=== PATIENT | female | born 1950 | race Caucasian/White ===

== ENCOUNTER 2018-06-20 09:51 | Day surgery (SDC) | payer MEDICARE, MEDICAID ==
[2018-06-19 15:26] VITALS: BMI 51.6
[2018-06-20] MEDS ORDERED: Bupivacaine HCl 0.5%/Epinephrine 1:200,000/PF 30 ml Vial ONE (12:21)
[2018-06-20] MEDS ORDERED: Midazolam HCl 2 mg/2 ml Vial ONE (12:26)
[2018-06-20] MEDS ORDERED: Fentanyl 100 MCG/2 ML VIAL ONE ×3 (12:26→14:40)
[2018-06-20] MEDS ORDERED: Ondansetron HCl/PF 4 MG/2 ML Vial ONE (13:35)
[2018-06-20] MEDS ORDERED: Dexamethasone 20 MG/5 ML VIAL ONE (13:35)
[2018-06-20] MEDS ORDERED: Lidocaine 1% PF 5 ML VIAL ONE (13:35)
[2018-06-20] MEDS ORDERED: Succinylcholine Chloride 20 MG/ML 10 ml SYRINGE FS ONE (13:35)
--- NOTE | 2018-06-20 14:27 | OP ---
DATE OF SURGERY: 06/20/2018 PREOPERATIVE DIAGNOSES: 1. Right carpal tunnel syndrome. 2. Right middle and ring trigger fingers. POSTOPERATIVE DIAGNOSES: 1. Right carpal tunnel syndrome. 2. Right middle and ring trigger fingers. PROCEDURES: 1. Right carpal tunnel release. 2. Right middle and ring trigger releases. SURGEON: Leopoldo Lawton M.D. PROCEDURE IN DETAIL: The patient was brought to the operating room, and after administration of gene ral anesthetic and intubation, the right upper extremity was prepped and draped in the usual fashion. The tourniquet was inflated. A curved longitudinal incision was made following the volar thenar crease to the level of the wrist. Subcutaneous tissues were spread and the carpal ligament was released along the ulnar border of the median nerve. The volar forearm fascia was also released. A straight longitudinal incision, 1.5 cm in length, was made over the right ring finger MCP joint of the volar side and the A1 silverio was identified and released. The subcutaneous tissues were lifted u p proximally and distally to make sure the silverio was completely released. The tendons were then pul led up out of the wound to be sure there were no adhesions. The wound was irrigated and closed with 4-0 nylon. An identical procedure was then carried out on the middle finger. The other incisions were also infi ltrated with Marcaine with epinephrine. The carpal tunnel incision was closed with a running 4-0 nyl on. A well-padded bulky dressing was applied and the patient taken to recovery room in satisfactory condition. ESTIMATED BLOOD LOSS: 10 mL. COMPLICATIONS: None. The patient was monitored. When she was awake and alert, she was discharged home. She was given a p rescription for pain medication, wound care instructions, and followup appointments.
[2018-06-20] MEDS ORDERED: Ketorolac Tromethamine 30 MG/ML VIAL ONE (14:28)
== END 2018-06-20 16:05 | disposition home or self-care (01) ==
LOC: SDC 09:51
PROVIDERS: ATTEND Orthopaedic Surgery
PROC: 0LN70ZZ Release Right Hand Tendon, Open Approach (ICD-10-PCS; principal; 2018-06-20)
PROC: 0LN70ZZ Release Right Hand Tendon, Open Approach (ICD-10-PCS; 2018-06-20)
PROC: 01N50ZZ Release Median Nerve, Open Approach (ICD-10-PCS; 2018-06-20)
DX: G56.01 Carpal tunnel syndrome, right upper limb (principal); M65.331 Trigger finger, right middle finger; M65.341 Trigger finger, right ring finger; I10 Essential (primary) hypertension; J45.909 Unspecified asthma, uncomplicated; K21.9 Gastro-esophageal reflux disease without esophagitis; Z79.02 Long term (current) use of antithrombotics/antiplatelets; Z79.899 Other long term (current) drug therapy; Z88.0 Allergy status to penicillin; Z88.5 Allergy status to narcotic agent; Z88.8 Allergy status to other drugs, medicaments and biological substances
CPT/HCPCS: 93005; 93010; 96374; J0670; J1100; J1885; J2001; J2250; J2405; J3010

== ENCOUNTER 2021-01-04 15:55 | Inpatient (IN) | payer MEDICARE, MEDICAID ==
[2021-01-04] MEDS ORDERED: Acetaminophen 650 MG Suppository PR PRN (19:02)
[2021-01-04] MEDS ORDERED: Ondansetron PF 4 MG/2 ML Vial IVP PRN (19:02)
[2021-01-04] MEDS ORDERED: Ondansetron ODT 4 MG TAB PO PRN (19:02)
[2021-01-04] MEDS ORDERED: Pharmacy to Dose REMDESIVIR IVPB PRN (19:37)
[2021-01-04 19:40] LABS: #Lymphocytes 0.8 thou/uL (1.20-3.40); #Monocytes 0.3 thou/uL (0.11-0.59); #Neutrophils 5.3 thou/uL (1.40-6.50); %Eosinophils 0.1 % (0.0-10.0); %Lymphocytes 11.8 % (21.0-51.0); %Monocytes 5.1 % (0.0-10.0); %Neutrophils 82.9 % (42.0-75.0); Hemoglobin 11.8 g/dL (12.0-16.0); Mean Corpuscular HGB CONC 33.2 g/dL (32.0-36.0); Mean Corpuscular Volume 84.5 fL (78.0-98.0); Mean Platelet Volume 8.1 fL (7.4-10.4); Platelet Count 202 thou/uL (130-400); RBC Distribution Width 14.9 % (11.5-14.5); Red Blood Cell (RBC) Count 4.22 mill/uL (4.20-5.40); White Blood Cell (WBC) Count 6.4 thou/uL (4.8-10.8)
[2021-01-04 19:59] LABS: Anion Gap 16 mmol/L (10-20); BUN (Urea Nitrogen) 14 mg/dL (9.8-20.1); Calc. Creatinine Clearance 157 mL/min (70-130); Calcium 6.7 mg/dL (7.8-10.44); Carbon Dioxide 20 mmol/L (23-31); Chloride 106 mmol/L (98-107); Glucose 141 mg/dL (80-115); Potassium 3.1 mmol/L (3.5-5.1); Sodium 139 mmol/L (136-145)
[2021-01-04] MEDS ORDERED: Zinc Sulfate 220 MG CAP PO SCH (20:00)
[2021-01-04] MEDS ORDERED: Ascorbic Acid 500 mg Chewable Tablet PO SCH (20:00)
[2021-01-04] MEDS ORDERED: Cholecalciferol (Vitamin D3) 400 UNITS TAB PO SCH (20:00)
[2021-01-04] MEDS: Sodium Chloride 0.9% 1,000 ML IV SCH (20:23)
[2021-01-04] MEDS ORDERED: Electrolyte Replacement Protocol 1 EACH FS SCH (20:45)
[2021-01-04] MEDS ORDERED: Potassium Chloride 20 MEQ TAB PO SCH (20:45)
[2021-01-04] MEDS: Acetaminophen 325 MG TAB PO PRN (20:51)
[2021-01-04] MEDS ORDERED: REMDESIVIR (EUA) 200 MG in Sodium Chloride 0.9% 250 ML 210 ML IV SCH (21:00)
[2021-01-04] MEDS ORDERED: Dextrose 50% Abboject 50 ML SYRINGE SLOW IVP PRN (21:14)
[2021-01-04] MEDS ORDERED: Dextrose 5% in Water 1,000 ML IV PRN (21:14)
[2021-01-04] MEDS ORDERED: Albuterol 200 PUFF (6.7GM INHALER) INH PRN (22:07)
[2021-01-04] MEDS: Albuterol 200 PUFF (6.7GM INHALER) INH SCH (22:47)
[2021-01-04] MEDS: HYDROcodone/Acetaminophen 5/325 mg Tablet PO PRN (22:47)
[2021-01-05] MEDS: Albuterol 200 PUFF (6.7GM INHALER) INH SCH ×6 (02:39→23:46)
[2021-01-05] MEDS: Sodium Chloride 0.9% 1,000 ML IV SCH ×4 (02:52→22:36)
[2021-01-05] MEDS: HYDROcodone/Acetaminophen 5/325 mg Tablet PO PRN ×3 (06:29→21:40)
[2021-01-05 07:08] LABS: Mean Corpuscular HGB CONC 33.9 g/dL (32.0-36.0); Mean Corpuscular Hemoglobin 28.9 pg (27.0-31.0); Mean Corpuscular Volume 85.3 fL (78.0-98.0); Platelet Count 222 thou/uL (130-400); RBC Distribution Width 14.9 % (11.5-14.5); Red Blood Cell (RBC) Count 4.14 mill/uL (4.20-5.40)
[2021-01-05 07:25] LABS: Anion Gap 14 mmol/L (10-20); BUN (Urea Nitrogen) 12 mg/dL (9.8-20.1); Calc. Creatinine Clearance 169 mL/min (70-130); Calcium 6.6 mg/dL (7.8-10.44); Carbon Dioxide 23 mmol/L (23-31); Chloride 107 mmol/L (98-107); Glucose 161 mg/dL (80-115); Potassium 3.3 mmol/L (3.5-5.1); Sodium 141 mmol/L (136-145)
[2021-01-05 07:30] LABS: ALT (SGPT) 12 U/L (8-55); AST (SGOT) 40 U/L (5-34)
[2021-01-05] MEDS ORDERED: Potassium Chloride 20 MEQ TAB PO SCH (07:45)
[2021-01-05] MEDS: Cholecalciferol (Vitamin D3) 400 UNITS TAB PO SCH (08:37)
[2021-01-05] MEDS: Zinc Sulfate 220 MG CAP PO SCH (08:37)
[2021-01-05] MEDS ORDERED: Ascorbic Acid 500 mg Chewable Tablet PO SCH (09:00)
[2021-01-05] MEDS ORDERED: Dexamethasone 4 mg/ml Vial SLOW IVP SCH (09:00)
[2021-01-05] MEDS ORDERED: Magnesium Sulfate 4 GM in Sodium Chloride 0.9% 250 ML 250 ML IVPB SCH ×2 (10:00→12:45)
[2021-01-05 11:45] LABS: Band 23 % (5-11); Lymphocytes 10 % (21-51); MDiff Complete? YES; Monocytes 5 % (0-10); Neutrophil 61 % (42-75); RBC Morphology Normal; Reactive Lymphocytes 1 % (0-10)
[2021-01-05] MEDS ORDERED: Ketorolac Tromethamine 30 MG/ML VIAL IVP SCH (21:00)
[2021-01-05] MEDS: Atorvastatin Calcium 40 MG TAB PO SCH (21:39)
[2021-01-05] MEDS: metFORMIN XR 500 MG TAB PO SCH (21:39)
[2021-01-05] MEDS: REMDESIVIR (EUA) 100 MG in Sodium Chloride 0.9% 250 ML 230 ML IV SCH (22:36)
[2021-01-06] MEDS: Guaifenesin DM 100-10/5 ML UDCUP PO PRN (02:13)
[2021-01-06] MEDS: Albuterol 200 PUFF (6.7GM INHALER) INH SCH ×6 (02:59→22:51)
[2021-01-06] MEDS ORDERED: Magnesium Sulfate 2 GM in Sodium Chloride 0.9% 100 ML IVPB SCH (04:45)
[2021-01-06] MEDS ORDERED: Enoxaparin Sodium 40 MG/0.4 ML SYRINGE SC SCH (05:00)
[2021-01-06] MEDS: Diltiazem 125 MG in Sodium Chloride 0.9% 100 ML IVPB SCH ×2 (05:30→15:34)
[2021-01-06] MEDS: Sodium Chloride 0.9% 1,000 ML IV SCH ×3 (05:55→22:51)
[2021-01-06] MEDS: ALPRAZolam 0.25 MG TAB PO PRN ×3 (06:36→18:27)
[2021-01-06 08:09] LABS: #Lymphocytes 0.6 thou/uL (1.20-3.40); #Monocytes 0.5 thou/uL (0.11-0.59); #Neutrophils 7.4 thou/uL (1.40-6.50); %Basophils 0.1 % (0.0-1.0); %Eosinophils 0.3 % (0.0-10.0); %Lymphocytes 7.4 % (21.0-51.0); %Monocytes 5.4 % (0.0-10.0); %Neutrophils 86.9 % (42.0-75.0); Hemoglobin 12.3 g/dL (12.0-16.0); Mean Corpuscular HGB CONC 30.8 g/dL (32.0-36.0); Mean Corpuscular Hemoglobin 26.4 pg (27.0-31.0); Mean Corpuscular Volume 85.5 fL (78.0-98.0); Mean Platelet Volume 7.5 fL (7.4-10.4); Platelet Count 285 thou/uL (130-400); RBC Distribution Width 15.2 % (11.5-14.5); Red Blood Cell (RBC) Count 4.66 mill/uL (4.20-5.40); White Blood Cell (WBC) Count 8.6 thou/uL (4.8-10.8)
[2021-01-06 08:27] LABS: Magnesium 2.3 mg/dL (1.6-2.6)
[2021-01-06 08:30] LABS: ALT (SGPT) 11 U/L (8-55); AST (SGOT) 45 U/L (5-34); Anion Gap 15 mmol/L (10-20); BUN (Urea Nitrogen) 10 mg/dL (9.8-20.1); Calc. Creatinine Clearance 195 mL/min (70-130); Calcium 6.8 mg/dL (7.8-10.44); Carbon Dioxide 20 mmol/L (23-31); Chloride 108 mmol/L (98-107); Glucose 168 mg/dL (80-115); Potassium 3.2 mmol/L (3.5-5.1); Sodium 140 mmol/L (136-145)
[2021-01-06] MEDS: HumaLOG 300 UNITS/3 ML VIAL SC PRN (08:54)
[2021-01-06] MEDS: Ascorbic Acid 500 mg Chewable Tablet PO SCH ×2 (09:14→20:52)
[2021-01-06] MEDS: Clopidogrel Bisulfate 75 MG TAB PO SCH (09:15)
[2021-01-06] MEDS: Dexamethasone 4 mg/ml Vial SLOW IVP SCH ×2 (09:16→20:55)
[2021-01-06] MEDS: Zinc Sulfate 220 MG CAP PO SCH (09:18)
[2021-01-06] MEDS: Cholecalciferol (Vitamin D3) 400 UNITS TAB PO SCH (09:18)
[2021-01-06] MEDS ORDERED: Potassium Chloride 20 MEQ TAB PO SCH (09:45)
[2021-01-06] MEDS ORDERED: Potassium Chloride 20 MEQ in Premix Bag 1 BAG IVPB SCH (11:00)
[2021-01-06] MEDS: HYDROcodone/Acetaminophen 5/325 mg Tablet PO PRN ×2 (11:45→18:26)
[2021-01-06] MEDS: Atorvastatin Calcium 40 MG TAB PO SCH (20:53)
[2021-01-06] MEDS: metFORMIN XR 500 MG TAB PO SCH (20:53)
[2021-01-06] MEDS: Enoxaparin Sodium 40 MG/0.4 ML SYRINGE SC SCH (20:54)
[2021-01-06] MEDS: REMDESIVIR (EUA) 100 MG in Sodium Chloride 0.9% 250 ML 230 ML IV SCH (20:58)
[2021-01-07] MEDS: HYDROcodone/Acetaminophen 5/325 mg Tablet PO PRN ×3 (00:21→15:06)
[2021-01-07] MEDS: Guaifenesin DM 100-10/5 ML UDCUP PO PRN (00:34)
[2021-01-07 05:52] LABS: ALT (SGPT) 11 U/L (8-55); AST (SGOT) 41 U/L (5-34); Anion Gap 16 mmol/L (10-20); BUN (Urea Nitrogen) 12 mg/dL (9.8-20.1); Calc. Creatinine Clearance 191 mL/min (70-130); Calcium 6.5 mg/dL (7.8-10.44); Carbon Dioxide 20 mmol/L (23-31); Chloride 110 mmol/L (98-107); Glucose 200 mg/dL (80-115); Hemoglobin 12.6 g/dL (12.0-16.0); Mean Corpuscular HGB CONC 33.2 g/dL (32.0-36.0); Mean Corpuscular Hemoglobin 28.6 pg (27.0-31.0); Mean Corpuscular Volume 86.1 fL (78.0-98.0); Mean Platelet Volume 8.1 fL (7.4-10.4); Platelet Count 281 thou/uL (130-400); Potassium 3.5 mmol/L (3.5-5.1); RBC Distribution Width 15.4 % (11.5-14.5); Red Blood Cell (RBC) Count 4.41 mill/uL (4.20-5.40); Sodium 142 mmol/L (136-145); White Blood Cell (WBC) Count 8.2 thou/uL (4.8-10.8)
[2021-01-07 05:53] LABS: Band 1 % (5-11); Lymphocytes 6 % (21-51); MDiff Complete? YES; Monocytes 5 % (0-10); Neutrophil 88 % (42-75); Platelet Morphology Comment Appears Adequate
[2021-01-07] MEDS: Albuterol 200 PUFF (6.7GM INHALER) INH SCH ×4 (06:03→18:41)
[2021-01-07] MEDS: HumaLOG 300 UNITS/3 ML VIAL SC PRN ×3 (06:08→17:32)
[2021-01-07] MEDS ORDERED: Magnesium 2 GM/50 ML 2 GM in Premix Bag 1 BAG IVPB SCH (07:45)
[2021-01-07] MEDS ORDERED: Potassium Chloride 20 MEQ TAB PO SCH (07:45)
[2021-01-07] MEDS: Ascorbic Acid 500 mg Chewable Tablet PO SCH ×2 (07:48→21:19)
[2021-01-07] MEDS: Cholecalciferol (Vitamin D3) 400 UNITS TAB PO SCH (07:48)
[2021-01-07] MEDS: Zinc Sulfate 220 MG CAP PO SCH (07:48)
[2021-01-07] MEDS: Clopidogrel Bisulfate 75 MG TAB PO SCH (07:49)
[2021-01-07] MEDS: Enoxaparin Sodium 40 MG/0.4 ML SYRINGE SC SCH ×2 (07:50→21:20)
[2021-01-07] MEDS: Dexamethasone 4 mg/ml Vial SLOW IVP SCH (07:50)
[2021-01-07] MEDS: ALPRAZolam 0.25 MG TAB PO PRN (10:19)
[2021-01-07] MEDS ORDERED: methylPREDNISolone Sod Succ/PF 125 MG/2 ML VIAL IVPB SCH (11:15)
[2021-01-07] MEDS ORDERED: Ivermectin 3 MG TAB PO SCH (11:30)
[2021-01-07] MEDS ORDERED: Albuterol 200 PUFF (6.7GM INHALER) INH PRN (11:30)
[2021-01-07] MEDS: hydrALAZINE 20 MG/ML VIAL SLOW IVP PRN (13:10)
[2021-01-07] MEDS: Thiamine HCl 200 MG/2 ML VIAL SLOW IVP SCH (13:14)
[2021-01-07] MEDS: Propranolol HCl LA 80 MG CAP PO SCH ×5 (14:12→17:47)
[2021-01-07] MEDS: Diltiazem 125 MG in Sodium Chloride 0.9% 100 ML IVPB SCH (15:00)
[2021-01-07] MEDS: SODIUM CHLORIDE 0.9% IVPB SCH (15:00)
[2021-01-07] MEDS: METHYLPREDNISOLONE SOD SUCC IVPB SCH (15:00)
[2021-01-07] MEDS: Sodium Chloride 0.9% 1,000 ML IV SCH ×3 (15:41→22:54)
[2021-01-07] MEDS ORDERED: ALPRAZolam 0.25 MG TAB PO PRN (18:10)
[2021-01-07] MEDS: Atorvastatin Calcium 40 MG TAB PO SCH (21:19)
[2021-01-07] MEDS: metFORMIN XR 500 MG TAB PO SCH (21:19)
[2021-01-07] MEDS: Melatonin 3 MG TAB PO SCH (21:19)
[2021-01-07] MEDS: REMDESIVIR (EUA) 100 MG in Sodium Chloride 0.9% 250 ML 230 ML IV SCH (21:20)
[2021-01-08] MEDS: Diltiazem 125 MG in Sodium Chloride 0.9% 100 ML IVPB SCH ×2 (00:21→15:13)
[2021-01-08] MEDS: Albuterol 200 PUFF (6.7GM INHALER) INH SCH ×7 (01:37→22:04)
[2021-01-08] MEDS ORDERED: Lorazepam 2 MG/ML VIAL SLOW IVP SCH (04:15)
[2021-01-08] MEDS: HumaLOG 300 UNITS/3 ML VIAL SC PRN ×4 (05:22→22:00)
[2021-01-08 05:38] LABS: ALT (SGPT) 11 U/L (8-55); AST (SGOT) 36 U/L (5-34); Anion Gap 15 mmol/L (10-20); BUN (Urea Nitrogen) 11 mg/dL (9.8-20.1); Calc. Creatinine Clearance 191 mL/min (70-130); Calcium 6.2 mg/dL (7.8-10.44); Carbon Dioxide 23 mmol/L (23-31); Chloride 108 mmol/L (98-107); Glucose 217 mg/dL (80-115); Potassium 3.3 mmol/L (3.5-5.1); Sodium 143 mmol/L (136-145)
[2021-01-08 06:02] LABS: Band 4 % (5-11); Differential Comment Immature Cell(s); Hemoglobin 12.7 g/dL (12.0-16.0); Lymphocytes 5 % (21-51); MDiff Complete? YES; Mean Corpuscular HGB CONC 33.3 g/dL (32.0-36.0); Mean Corpuscular Hemoglobin 28.4 pg (27.0-31.0); Mean Corpuscular Volume 85.3 fL (78.0-98.0); Mean Platelet Volume 7.4 fL (7.4-10.4); Metamyelocyte 1 % (0-0); Monocytes 8 % (0-10); Neutrophil 80 % (42-75); Platelet Count 316 thou/uL (130-400); Platelet Morphology Comment Appears Adequate; RBC Distribution Width 15.2 % (11.5-14.5); RBC Morphology Normal; Red Blood Cell (RBC) Count 4.46 mill/uL (4.20-5.40); Reflex for Review?? YES
[2021-01-08] MEDS: Sodium Chloride 0.9% 1,000 ML IV SCH ×4 (07:07→19:47)
[2021-01-08] MEDS: Potassium Chloride 20 MEQ TAB PO SCH ×2 (07:09→07:28)
[2021-01-08] MEDS ORDERED: Propofol 1,000 MG/100 ML VIAL IV ONE (08:12)
[2021-01-08] MEDS ORDERED: Fentanyl CADD 100 ML ONE (08:13)
[2021-01-08] MEDS ORDERED: Vecuronium 10 MG VIAL ONE (09:12)
[2021-01-08] MEDS: Enoxaparin Sodium 40 MG/0.4 ML SYRINGE SC SCH ×2 (09:18→19:44)
[2021-01-08] MEDS: Cholecalciferol (Vitamin D3) 400 UNITS TAB PO SCH (09:18)
[2021-01-08] MEDS: Ascorbic Acid 500 mg Chewable Tablet PO SCH ×2 (09:18→19:44)
[2021-01-08] MEDS: Clopidogrel Bisulfate 75 MG TAB PO SCH (09:18)
[2021-01-08] MEDS: Zinc Sulfate 220 MG CAP PO SCH (09:18)
[2021-01-08] MEDS: Ivermectin 3 MG TAB PO SCH (09:19)
[2021-01-08] MEDS: Propranolol HCl LA 80 MG CAP PO SCH (09:19)
[2021-01-08] MEDS ORDERED: Electrolyte Replacement Protocol 1 EACH FS ONE (09:30)
[2021-01-08] MEDS ORDERED: Norepinephrine 8 MG/0.9% NS 250 ML IVPB SCH (09:30)
[2021-01-08] MEDS ORDERED: Ventilator Sedation Protocol 1 EACH FS SCH (09:30)
[2021-01-08] MEDS ORDERED: Propofol BOLUS 1,000 MG/100 ML VIAL IV PRN (10:00)
[2021-01-08] MEDS ORDERED: Fentanyl BOLUS 250 ML IVPB PRN (10:00)
[2021-01-08] MEDS ORDERED: Morphine 2 MG/ML VIAL SLOW IVP PRN (10:00)
[2021-01-08] MEDS ORDERED: DISCONTINUE PREVIOUS NARCOTIC PAIN MEDICATIONS AND BENZODIAZEPINES FS SCH (10:00)
[2021-01-08] MEDS ORDERED: Electrolyte Replacement Protocol FS PRN (10:00)
[2021-01-08 10:01] LABS: Actual Bicarbonate (HCO3a) 19.9 mEq/L (22-28); Base Excess (BEa) -5.5 mEq/L (-2.0 to +3.0); CO2 Tension 38.5 mmHg (35.0-45.0); Calcium, Ionized (arterial) 0.84 mmol/L (1.12-1.30); Carboxyhemoglobin (COHb) 0.2 gm% (0.0-3.0); Hemoglobin (Hb) 12.6 g/dL (12.0-16.0); Potassium - ABG Lab 2.92 mmol/L (3.70-5.30); pH, Arterial 7.33 (7.35-7.45)
[2021-01-08 10:10] LABS: O2 Tension (PaO2), arterial 48.8 mmHg (> 80.0)
[2021-01-08 10:11] LABS: ALV-art Gradient 616.075 mmHg (0-20); Puncture Site RRA
[2021-01-08] MEDS ORDERED: EPINEPHrine 1 MG/10 ML Abboject SYRINGE ONE (11:00)
[2021-01-08] MEDS ORDERED: Magnesium 2 GM/50 ML 2 GM in Premix Bag 1 BAG IVPB SCH (11:00)
[2021-01-08] MEDS: Vecuronium 10 MG VIAL IVP PRN ×2 (11:24→18:03)
[2021-01-08] MEDS: Lorazepam 2 MG/ML VIAL SLOW IVP PRN ×3 (11:25→18:03)
[2021-01-08] MEDS: METHYLPREDNISOLONE SOD SUCC IVPB SCH (11:25)
[2021-01-08] MEDS: SODIUM CHLORIDE 0.9% IVPB SCH (11:25)
[2021-01-08] MEDS: Thiamine HCl 200 MG/2 ML VIAL SLOW IVP SCH (11:28)
[2021-01-08] MEDS ORDERED: Potassium Chloride 40 MEQ in Premix Bag 1 BAG IVPB SCH (19:30)
[2021-01-08] MEDS: Atorvastatin Calcium 40 MG TAB PO SCH (19:44)
[2021-01-08] MEDS: Melatonin 3 MG TAB PO SCH (19:44)
[2021-01-08] MEDS: Propofol 1,000 MG/100 ML VIAL IV PRN (19:45)
[2021-01-08] MEDS: metFORMIN XR 500 MG TAB PO SCH (19:45)
[2021-01-08] MEDS: REMDESIVIR (EUA) 100 MG in Sodium Chloride 0.9% 250 ML 230 ML IV SCH (19:59)
[2021-01-09] MEDS ORDERED: Fentanyl CADD 100 ML ONE ×2 (01:55→22:49)
[2021-01-09] MEDS: Fentanyl CADD 100 ML IV SCH ×2 (02:01→22:52)
[2021-01-09] MEDS: Propofol 1,000 MG/100 ML VIAL IV PRN ×4 (02:01→20:11)
[2021-01-09] MEDS: Lorazepam 2 MG/ML VIAL SLOW IVP PRN ×2 (02:10→04:26)
[2021-01-09] MEDS: Vecuronium 10 MG VIAL IVP PRN ×5 (02:10→20:11)
[2021-01-09] MEDS: Albuterol 200 PUFF (6.7GM INHALER) INH SCH ×6 (02:19→21:53)
[2021-01-09] MEDS: HumaLOG 300 UNITS/3 ML VIAL SC PRN ×3 (03:50→20:52)
[2021-01-09 04:13] LABS: #Lymphocytes 0.7 thou/uL (1.20-3.40); #Monocytes 0.5 thou/uL (0.11-0.59); #Neutrophils 8.2 thou/uL (1.40-6.50); %Basophils 0.2 % (0.0-1.0); %Lymphocytes 7.5 % (21.0-51.0); %Monocytes 5.7 % (0.0-10.0); %Neutrophils 86.5 % (42.0-75.0); Hemoglobin 10.8 g/dL (12.0-16.0); Mean Corpuscular HGB CONC 34.8 g/dL (32.0-36.0); Mean Corpuscular Hemoglobin 30.3 pg (27.0-31.0); Mean Corpuscular Volume 86.9 fL (78.0-98.0); Platelet Count 294 thou/uL (130-400); RBC Distribution Width 16.1 % (11.5-14.5); Red Blood Cell (RBC) Count 3.55 mill/uL (4.20-5.40); White Blood Cell (WBC) Count 9.5 thou/uL (4.8-10.8)
[2021-01-09 04:26] LABS: ALT (SGPT) 12 U/L (8-55); AST (SGOT) 36 U/L (5-34); Anion Gap 14 mmol/L (10-20); BUN (Urea Nitrogen) 24 mg/dL (9.8-20.1); Calc. Creatinine Clearance 153 mL/min (70-130); Calcium 6.1 mg/dL (7.8-10.44); Carbon Dioxide 22 mmol/L (23-31); Chloride 111 mmol/L (98-107); Glucose 193 mg/dL (80-115); Potassium 3.8 mmol/L (3.5-5.1); Sodium 143 mmol/L (136-145)
[2021-01-09 06:47] LABS: Actual Bicarbonate (HCO3a) 23.3 mEq/L (22-28); Base Excess (BEa) 0.8 mEq/L (-2.0 to +3.0); CO2 Tension 30.7 mmHg (35.0-45.0); Calcium, Ionized (arterial) 0.87 mmol/L (1.12-1.30); Carboxyhemoglobin (COHb) 0.2 gm% (0.0-3.0); Potassium - ABG Lab 3.64 mmol/L (3.70-5.30)
[2021-01-09 06:56] LABS: Puncture Site RRA
[2021-01-09 06:57] LABS: ALV-art Gradient 226.475 mmHg (0-20)
[2021-01-09] MEDS: Cholecalciferol (Vitamin D3) 400 UNITS TAB PO SCH (09:29)
[2021-01-09] MEDS: Pantoprazole 40 MG VIAL IVP SCH (09:29)
[2021-01-09] MEDS: Zinc Sulfate 220 MG CAP PO SCH (09:29)
[2021-01-09] MEDS: Metoprolol Tartrate 25 MG TAB PER TUBE SCH ×2 (09:29→20:10)
[2021-01-09] MEDS: Clopidogrel Bisulfate 75 MG TAB PO SCH (09:30)
[2021-01-09] MEDS: Ascorbic Acid 500 mg Chewable Tablet PO SCH ×2 (09:30→20:10)
[2021-01-09] MEDS: Enoxaparin Sodium 40 MG/0.4 ML SYRINGE SC SCH ×2 (09:30→20:09)
[2021-01-09] MEDS: Ivermectin 3 MG TAB PO SCH (09:34)
[2021-01-09] MEDS: METHYLPREDNISOLONE SOD SUCC IVPB SCH (12:51)
[2021-01-09] MEDS: SODIUM CHLORIDE 0.9% IVPB SCH (12:51)
[2021-01-09] MEDS: Thiamine HCl 200 MG/2 ML VIAL SLOW IVP SCH (12:55)
[2021-01-09] MEDS: Sodium Chloride 0.9% 1,000 ML IV SCH ×2 (13:36→23:36)
[2021-01-09] MEDS: Melatonin 3 MG TAB PO SCH (20:09)
[2021-01-09] MEDS: Atorvastatin Calcium 40 MG TAB PO SCH (20:10)
[2021-01-10] MEDS: Albuterol 200 PUFF (6.7GM INHALER) INH SCH ×6 (02:11→21:39)
[2021-01-10] MEDS: Propofol 1,000 MG/100 ML VIAL IV PRN ×6 (03:11→23:14)
[2021-01-10] MEDS: Vecuronium 10 MG VIAL IVP PRN ×4 (03:11→16:14)
[2021-01-10] MEDS: Sodium Chloride 0.9% 1,000 ML IV SCH ×3 (03:30→10:03)
[2021-01-10 03:45] LABS: #Basophils 0.1 thou/uL (0.0-0.2); #Lymphocytes 0.5 thou/uL (1.20-3.40); #Monocytes 0.5 thou/uL (0.11-0.59); #Neutrophils 8.1 thou/uL (1.40-6.50); %Basophils 0.6 % (0.0-1.0); %Eosinophils 0.1 % (0.0-10.0); %Lymphocytes 5.4 % (21.0-51.0); %Monocytes 5.2 % (0.0-10.0); %Neutrophils 88.7 % (42.0-75.0); Hemoglobin 10.2 g/dL (12.0-16.0); Mean Corpuscular HGB CONC 33.5 g/dL (32.0-36.0); Mean Corpuscular Hemoglobin 29.2 pg (27.0-31.0); Mean Corpuscular Volume 87.3 fL (78.0-98.0); Mean Platelet Volume 7.9 fL (7.4-10.4); Platelet Count 277 thou/uL (130-400); RBC Distribution Width 15.7 % (11.5-14.5); White Blood Cell (WBC) Count 9.1 thou/uL (4.8-10.8)
[2021-01-10 04:01] LABS: Anion Gap 12 mmol/L (10-20); BUN (Urea Nitrogen) 30 mg/dL (9.8-20.1); CRP (Inflammatory) 5.33 mg/dL (= or < 0.5); Calc. Creatinine Clearance 145 mL/min (70-130); Carbon Dioxide 23 mmol/L (23-31); Chloride 114 mmol/L (98-107); Glucose 213 mg/dL (80-115); Potassium 4.1 mmol/L (3.5-5.1); Sodium 145 mmol/L (136-145)
[2021-01-10] MEDS: HumaLOG 300 UNITS/3 ML VIAL SC PRN ×4 (05:25→21:09)
[2021-01-10 07:26] LABS: Actual Bicarbonate (HCO3a) 22.7 mEq/L (22-28); Base Excess (BEa) -0.3 mEq/L (-2.0 to +3.0); Calcium, Ionized (arterial) 0.88 mmol/L (1.12-1.30); Carboxyhemoglobin (COHb) 0.5 gm% (0.0-3.0); Hemoglobin (Hb) 12.1 g/dL (12.0-16.0); O2 Tension (PaO2), arterial 80.1 mmHg (> 80.0); Potassium - ABG Lab 3.96 mmol/L (3.70-5.30); pH, Arterial 7.47 (7.35-7.45)
[2021-01-10] MEDS: Cholecalciferol (Vitamin D3) 400 UNITS TAB PO SCH (09:57)
[2021-01-10] MEDS: Clopidogrel Bisulfate 75 MG TAB PO SCH (09:57)
[2021-01-10] MEDS: Metoprolol Tartrate 25 MG TAB PER TUBE SCH ×2 (09:57→20:34)
[2021-01-10] MEDS: Ascorbic Acid 500 mg Chewable Tablet PO SCH ×2 (09:58→20:34)
[2021-01-10] MEDS: Pantoprazole 40 MG VIAL IVP SCH (09:58)
[2021-01-10] MEDS: Zinc Sulfate 220 MG CAP PO SCH (09:58)
[2021-01-10] MEDS: Enoxaparin Sodium 40 MG/0.4 ML SYRINGE SC SCH ×2 (09:58→20:35)
[2021-01-10] MEDS: Ivermectin 3 MG TAB PO SCH (10:00)
[2021-01-10] MEDS: NPH, Human Insulin Isophane 300 UNIT/3 ML VIAL SC SCH ×2 (10:01→20:35)
[2021-01-10] MEDS: Lorazepam 2 MG/ML VIAL SLOW IVP PRN ×3 (10:16→16:14)
[2021-01-10] MEDS ORDERED: Fentanyl CADD 100 ML ONE (11:15)
[2021-01-10] MEDS: Thiamine HCl 200 MG/2 ML VIAL SLOW IVP SCH ×2 (12:00→14:31)
[2021-01-10] MEDS: SODIUM CHLORIDE 0.9% IVPB SCH (14:07)
[2021-01-10] MEDS: METHYLPREDNISOLONE SOD SUCC IVPB SCH (14:07)
[2021-01-10] MEDS: Acetaminophen 325 MG TAB PO PRN (15:13)
[2021-01-10] MEDS ORDERED: Amiodarone 150 MG, Admixture Fee 1 EACH in Dextrose 5% in Water 100 ML IVPB SCH (19:45)
[2021-01-10] MEDS: Amiodarone 450 MG, Admixture Fee 1 EACH in Dextrose 5% in Water 250 ML IVPB SCH (19:48)
[2021-01-10] MEDS: Norepinephrine 8 MG/0.9% NS 250 ML IVPB SCH (20:31)
[2021-01-10] MEDS: Melatonin 3 MG TAB PO SCH (20:34)
[2021-01-10] MEDS: Atorvastatin Calcium 40 MG TAB PO SCH (20:34)
[2021-01-10] MEDS: Cefepime 1 GM in Sodium Chloride 0.9% 100 ML IVPB SCH (20:35)
[2021-01-11] MEDS: Vecuronium 10 MG VIAL IVP PRN ×3 (00:46→22:18)
[2021-01-11] MEDS: Lorazepam 2 MG/ML VIAL SLOW IVP PRN ×2 (00:46→22:18)
[2021-01-11] MEDS ORDERED: Fentanyl CADD 100 ML ONE ×2 (01:44→15:21)
[2021-01-11] MEDS: Albuterol 200 PUFF (6.7GM INHALER) INH SCH ×6 (02:08→23:16)
[2021-01-11 04:27] LABS: Band 52 % (5-11); Hemoglobin 11.4 g/dL (12.0-16.0); Lymphocytes 2 % (21-51); MDiff Complete? YES; Mean Corpuscular HGB CONC 32.5 g/dL (32.0-36.0); Mean Corpuscular Volume 89.2 fL (78.0-98.0); Mean Platelet Volume 8.2 fL (7.4-10.4); Monocytes 1 % (0-10); Neutrophil 45 % (42-75); Platelet Count 358 thou/uL (130-400); Platelet Morphology Comment Appears Adequate; RBC Distribution Width 16.8 % (11.5-14.5); Red Blood Cell (RBC) Count 3.92 mill/uL (4.20-5.40); White Blood Cell (WBC) Count 18.8 thou/uL (4.8-10.8)
[2021-01-11 04:43] LABS: Anion Gap 16 mmol/L (10-20); BUN (Urea Nitrogen) 38 mg/dL (9.8-20.1); CRP (Inflammatory) 20.94 mg/dL (= or < 0.5); Calc. Creatinine Clearance 20 mL/min (70-130); Calcium 6.2 mg/dL (7.8-10.44); Carbon Dioxide 23 mmol/L (23-31); Chloride 111 mmol/L (98-107); Glucose 200 mg/dL (80-115); Potassium 4.6 mmol/L (3.5-5.1); Sodium 145 mmol/L (136-145)
[2021-01-11] MEDS: Amiodarone 450 MG, Admixture Fee 1 EACH in Dextrose 5% in Water 250 ML IVPB SCH ×2 (04:45→21:32)
[2021-01-11] MEDS: HumaLOG 300 UNITS/3 ML VIAL SC PRN ×4 (04:52→22:09)
[2021-01-11] MEDS: Sodium Chloride 0.9% 1,000 ML IV SCH ×3 (04:52→17:34)
[2021-01-11 07:04] LABS: Actual Bicarbonate (HCO3a) 22.3 mEq/L (22-28); Base Excess (BEa) -6.3 mEq/L (-2.0 to +3.0); CO2 Tension 58.8 mmHg (35.0-45.0); Calcium, Ionized (arterial) 0.92 mmol/L (1.12-1.30); Carboxyhemoglobin (COHb) 0.6 gm% (0.0-3.0); Hemoglobin (Hb) 12.5 g/dL (12.0-16.0); Potassium - ABG Lab 4.74 mmol/L (3.70-5.30)
[2021-01-11 07:13] LABS: Puncture Site RRA
[2021-01-11] MEDS: Ascorbic Acid 500 mg Chewable Tablet PO SCH ×2 (08:13→21:31)
[2021-01-11] MEDS: Cholecalciferol (Vitamin D3) 400 UNITS TAB PO SCH (08:14)
[2021-01-11] MEDS: Metoprolol Tartrate 25 MG TAB PER TUBE SCH ×2 (08:14→21:31)
[2021-01-11] MEDS: Cefepime 1 GM in Sodium Chloride 0.9% 100 ML IVPB SCH ×2 (08:14→21:31)
[2021-01-11] MEDS: Pantoprazole 40 MG VIAL IVP SCH (08:15)
[2021-01-11] MEDS: Propofol 1,000 MG/100 ML VIAL IV PRN ×2 (08:15→17:33)
[2021-01-11] MEDS: Enoxaparin Sodium 40 MG/0.4 ML SYRINGE SC SCH (08:15)
[2021-01-11] MEDS: Zinc Sulfate 220 MG CAP PO SCH (08:15)
[2021-01-11] MEDS: Clopidogrel Bisulfate 75 MG TAB PO SCH (08:15)
[2021-01-11] MEDS: NPH, Human Insulin Isophane 300 UNIT/3 ML VIAL SC SCH ×2 (08:16→21:33)
[2021-01-11] MEDS: Ivermectin 3 MG TAB PO SCH (08:27)
[2021-01-11] MEDS ORDERED: methylPREDNISolone Sod Succ/PF 125 MG/2 ML VIAL IVP SCH (10:30)
[2021-01-11] MEDS: Vancomycin 1 GM in Premix Bag 1 BAG IVPB SCH (10:44)
[2021-01-11] MEDS: METHYLPREDNISOLONE SOD SUCC IVPB SCH ×2 (11:22→12:14)
[2021-01-11] MEDS: Micafungin 100 MG in Sodium Chloride 0.9% 100 ML IVPB SCH (11:22)
[2021-01-11] MEDS: SODIUM CHLORIDE 0.9% IVPB SCH ×2 (11:22→12:14)
[2021-01-11] MEDS: Thiamine HCl 200 MG/2 ML VIAL SLOW IVP SCH (13:42)
[2021-01-11] MEDS: Fentanyl CADD 100 ML IV SCH (15:23)
[2021-01-11] MEDS: Albumin 25% 25 GM/100 ML BOT IVPB SCH (17:33)
[2021-01-11 18:01] LABS: Bacteria/HPF 4+ HPF (None Seen); Bilirubin Negative (Negative); Blood, Urine 3+ (Negative); Clarity Extra Turbid (Clear); Glucose, Urine (Dipstick) Normal (Negative); Ketone, Urine Negative (Negative); Leukocyte 250 Leu/uL (Negative); Nitrite Negative (Negative); Protein, Urine (Dipstick) 50 mg/dL (Neg-Trace); Specific Gravity, Urine 1.015 (1.002-1.036); Squamous Epithelial 0-3 HPF (0-3); Urobilinogen Normal mg/dL (Less than 2); WBC/HPF 21-50 HPF (0-3); pH, Urine 5.5 (5.0-9.0)
[2021-01-11 18:15] LABS: Creatinine, Urine 70.61 mg/dL (47-110)
[2021-01-11] MEDS: Melatonin 3 MG TAB PO SCH (21:31)
[2021-01-11] MEDS: Atorvastatin Calcium 40 MG TAB PO SCH (21:31)
[2021-01-12] MEDS: Albumin 25% 25 GM/100 ML BOT IVPB SCH ×3 (00:11→12:47)
[2021-01-12] MEDS: Vecuronium 10 MG VIAL IVP PRN ×2 (00:38→07:50)
[2021-01-12] MEDS: Albuterol 200 PUFF (6.7GM INHALER) INH SCH ×6 (02:10→22:22)
[2021-01-12] MEDS: Propofol 1,000 MG/100 ML VIAL IV PRN ×4 (02:51→20:33)
[2021-01-12 03:37] LABS: Calcium 6.4 mg/dL (7.8-10.44); Chloride 110 mmol/L (98-107); Potassium 4.1 mmol/L (3.5-5.1); Sodium 141 mmol/L (136-145)
[2021-01-12 03:38] LABS: Glucose 192 mg/dL (80-115)
[2021-01-12 03:39] LABS: Anion Gap 18 mmol/L (10-20); Carbon Dioxide 17 mmol/L (23-31)
[2021-01-12] MEDS: HumaLOG 300 UNITS/3 ML VIAL SC PRN ×4 (04:00→21:45)
[2021-01-12 04:21] LABS: #Basophils 0.1 thou/uL (0.0-0.2); #Lymphocytes 0.4 thou/uL (1.20-3.40); #Monocytes 0.2 thou/uL (0.11-0.59); #Neutrophils 4.8 thou/uL (1.40-6.50); %Basophils 1.5 % (0.0-1.0); %Eosinophils 0.1 % (0.0-10.0); %Monocytes 3.3 % (0.0-10.0); %Neutrophils 87.2 % (42.0-75.0); Hemoglobin 8.7 g/dL (12.0-16.0); Mean Corpuscular HGB CONC 32.5 g/dL (32.0-36.0); Mean Corpuscular Hemoglobin 28.2 pg (27.0-31.0); Mean Corpuscular Volume 86.8 fL (78.0-98.0); Mean Platelet Volume 8.6 fL (7.4-10.4); Platelet Count 189 thou/uL (130-400); RBC Distribution Width 15.5 % (11.5-14.5); Red Blood Cell (RBC) Count 3.07 mill/uL (4.20-5.40); White Blood Cell (WBC) Count 5.5 thou/uL (4.8-10.8)
[2021-01-12 04:38] LABS: BUN (Urea Nitrogen) 68 mg/dL (9.8-20.1); CRP (Inflammatory) 33.39 mg/dL (= or < 0.5)
[2021-01-12 04:39] LABS: Calc. Creatinine Clearance 39 mL/min (70-130)
[2021-01-12] MEDS ORDERED: Fentanyl CADD 100 ML ONE (07:27)
[2021-01-12 08:30] LABS: Actual Bicarbonate (HCO3a) 18.6 mEq/L (22-28); Base Excess (BEa) -6.7 mEq/L (-2.0 to +3.0); CO2 Tension 36.3 mmHg (35.0-45.0); Calcium, Ionized (arterial) 0.87 mmol/L (1.12-1.30); Carboxyhemoglobin (COHb) 0.3 gm% (0.0-3.0); Hemoglobin (Hb) 10.1 g/dL (12.0-16.0); Potassium - ABG Lab 4.23 mmol/L (3.70-5.30); pH, Arterial 7.33 (7.35-7.45)
[2021-01-12] MEDS: Pantoprazole 40 MG VIAL IVP SCH (08:44)
[2021-01-12] MEDS: Cefepime 1 GM in Sodium Chloride 0.9% 100 ML IVPB SCH ×2 (08:44→21:28)
[2021-01-12] MEDS: Ivermectin 3 MG TAB PO SCH (08:45)
[2021-01-12] MEDS: Heparin 5,000 UNITS/ML VIAL SC SCH ×3 (08:46→21:29)
[2021-01-12] MEDS: Clopidogrel Bisulfate 75 MG TAB PO SCH (08:46)
[2021-01-12] MEDS: Zinc Sulfate 220 MG CAP PO SCH (08:46)
[2021-01-12] MEDS: Ascorbic Acid 500 mg Chewable Tablet PO SCH ×2 (08:46→21:29)
[2021-01-12] MEDS: Cholecalciferol (Vitamin D3) 400 UNITS TAB PO SCH (08:46)
[2021-01-12] MEDS: NPH, Human Insulin Isophane 300 UNIT/3 ML VIAL SC SCH ×2 (08:47→21:32)
[2021-01-12] MEDS ORDERED: Enoxaparin Sodium 40 MG/0.4 ML SYRINGE SC SCH (09:00)
[2021-01-12] MEDS: Sodium Chloride 0.9% 1,000 ML IV SCH (10:11)
[2021-01-12] MEDS: Vancomycin 1 GM in Premix Bag 1 BAG IVPB SCH (10:34)
[2021-01-12] MEDS: Micafungin 100 MG in Sodium Chloride 0.9% 100 ML IVPB SCH (11:35)
[2021-01-12 12:41] LABS: ALV-art Gradient 503.325 mmHg (0-20); Puncture Site RRA
[2021-01-12] MEDS: METHYLPREDNISOLONE SOD SUCC IVPB SCH (13:06)
[2021-01-12] MEDS: SODIUM CHLORIDE 0.9% IVPB SCH (13:06)
[2021-01-12] MEDS: Thiamine HCl 200 MG/2 ML VIAL SLOW IVP SCH (13:07)
[2021-01-12] MEDS: Melatonin 3 MG TAB PO SCH (21:30)
[2021-01-12] MEDS: Atorvastatin Calcium 40 MG TAB PO SCH (21:30)
[2021-01-13] MEDS: Albuterol 200 PUFF (6.7GM INHALER) INH SCH ×6 (02:11→22:47)
[2021-01-13] MEDS: Propofol 1,000 MG/100 ML VIAL IV PRN ×4 (02:39→23:16)
[2021-01-13] MEDS ORDERED: Fentanyl CADD 100 ML ONE (04:03)
[2021-01-13] MEDS: HumaLOG 300 UNITS/3 ML VIAL SC PRN ×4 (04:10→21:39)
[2021-01-13] MEDS: Fentanyl CADD 100 ML IV SCH (04:10)
[2021-01-13] MEDS: Sodium Chloride 0.9% 1,000 ML IV SCH ×2 (04:11→21:00)
[2021-01-13] MEDS: hydrALAZINE 20 MG/ML VIAL SLOW IVP PRN ×2 (04:12→16:34)
[2021-01-13 04:44] LABS: #Lymphocytes 0.5 thou/uL (1.20-3.40); #Monocytes 0.5 thou/uL (0.11-0.59); #Neutrophils 9.1 thou/uL (1.40-6.50); %Eosinophils 0.1 % (0.0-10.0); %Monocytes 4.6 % (0.0-10.0); %Neutrophils 90.3 % (42.0-75.0); Anion Gap 19 mmol/L (10-20); BUN (Urea Nitrogen) 81 mg/dL (9.8-20.1); CRP (Inflammatory) 22.07 mg/dL (= or < 0.5); Calc. Creatinine Clearance 30 mL/min (70-130); Calcium 6.4 mg/dL (7.8-10.44); Carbon Dioxide 17 mmol/L (23-31); Chloride 109 mmol/L (98-107); Glucose 208 mg/dL (80-115); Hemoglobin 9.5 g/dL (12.0-16.0); Mean Corpuscular HGB CONC 33.2 g/dL (32.0-36.0); Mean Corpuscular Hemoglobin 28.7 pg (27.0-31.0); Mean Corpuscular Volume 86.2 fL (78.0-98.0); Mean Platelet Volume 9.4 fL (7.4-10.4); Platelet Count 184 thou/uL (130-400); Potassium 4.3 mmol/L (3.5-5.1); RBC Distribution Width 15.7 % (11.5-14.5); Red Blood Cell (RBC) Count 3.31 mill/uL (4.20-5.40); Sodium 141 mmol/L (136-145); White Blood Cell (WBC) Count 10.1 thou/uL (4.8-10.8)
[2021-01-13 06:50] LABS: Actual Bicarbonate (HCO3a) 17.8 mEq/L (22-28); Base Excess (BEa) -9.2 mEq/L (-2.0 to +3.0); CO2 Tension 42.8 mmHg (35.0-45.0); Carboxyhemoglobin (COHb) 0.3 gm% (0.0-3.0); Hemoglobin (Hb) 11.8 g/dL (12.0-16.0); O2 Tension (PaO2), arterial 108.3 mmHg (> 80.0); Potassium - ABG Lab 4.41 mmol/L (3.70-5.30)
[2021-01-13 06:51] LABS: Puncture Site LRA; pH, Arterial 7.24 (7.35-7.45)
[2021-01-13] MEDS: Zinc Sulfate 220 MG CAP PO SCH (08:23)
[2021-01-13] MEDS: Vecuronium 10 MG VIAL IVP PRN (08:23)
[2021-01-13] MEDS: Cholecalciferol (Vitamin D3) 400 UNITS TAB PO SCH (08:23)
[2021-01-13] MEDS: Heparin 5,000 UNITS/ML VIAL SC SCH ×3 (08:23→20:10)
[2021-01-13] MEDS: Clopidogrel Bisulfate 75 MG TAB PO SCH (08:23)
[2021-01-13] MEDS: Pantoprazole 40 MG GRANULES PACKET PER TUBE SCH (08:24)
[2021-01-13] MEDS: Metoprolol Tartrate 25 MG TAB PO SCH ×2 (08:24→20:11)
[2021-01-13] MEDS: Ascorbic Acid 500 mg Chewable Tablet PO SCH ×2 (08:24→20:10)
[2021-01-13] MEDS: Metoclopramide HCl 10 MG/2 ML VIAL IVP SCH ×3 (08:25→20:18)
[2021-01-13] MEDS: Ivermectin 3 MG TAB PO SCH (08:25)
[2021-01-13] MEDS: NPH, Human Insulin Isophane 300 UNIT/3 ML VIAL SC SCH ×2 (08:26→20:12)
[2021-01-13] MEDS: Diltiazem HCl 125 MG, Admixture Fee 1 EACH in Sodium Chloride 0.9% 100 ML IVPB SCH ×2 (10:55→20:47)
[2021-01-13] MEDS: Micafungin 100 MG in Sodium Chloride 0.9% 100 ML IVPB SCH (11:15)
[2021-01-13] MEDS: SODIUM CHLORIDE 0.9% IVPB SCH (12:15)
[2021-01-13] MEDS: METHYLPREDNISOLONE SOD SUCC IVPB SCH (12:15)
[2021-01-13] MEDS: Thiamine HCl 200 MG/2 ML VIAL SLOW IVP SCH (13:00)
[2021-01-13] MEDS: Melatonin 3 MG TAB PO SCH (20:10)
[2021-01-13] MEDS: Atorvastatin Calcium 40 MG TAB PO SCH (20:11)
[2021-01-13] MEDS: Cefepime 0.5 GM, Admixture Fee 1 EACH in Sodium Chloride 0.9% 100 ML IVPB SCH (20:47)
[2021-01-14] MEDS ORDERED: Fentanyl CADD 100 ML ONE ×2 (00:20→20:10)
[2021-01-14] MEDS: Fentanyl CADD 100 ML IV SCH ×2 (00:26→20:12)
[2021-01-14] MEDS: Diltiazem HCl 125 MG, Admixture Fee 1 EACH in Sodium Chloride 0.9% 100 ML IVPB SCH (02:56)
[2021-01-14] MEDS: Metoclopramide HCl 10 MG/2 ML VIAL IVP SCH ×3 (02:57→20:01)
[2021-01-14] MEDS: Albuterol 200 PUFF (6.7GM INHALER) INH SCH ×6 (03:11→23:49)
[2021-01-14] MEDS: HumaLOG 300 UNITS/3 ML VIAL SC PRN ×3 (03:25→21:00)
[2021-01-14 04:11] LABS: Anion Gap 23 mmol/L (10-20); BUN (Urea Nitrogen) 101 mg/dL (9.8-20.1); CRP (Inflammatory) 14.44 mg/dL (= or < 0.5); Calc. Creatinine Clearance 26 mL/min (70-130); Calcium 6.7 mg/dL (7.8-10.44); Carbon Dioxide 14 mmol/L (23-31); Chloride 107 mmol/L (98-107); Glucose 230 mg/dL (80-115); Potassium 4.6 mmol/L (3.5-5.1); Sodium 139 mmol/L (136-145)
[2021-01-14] MEDS: Propofol 1,000 MG/100 ML VIAL IV PRN ×5 (04:15→20:00)
[2021-01-14 05:22] LABS: Band 20 % (5-11); Hemoglobin 10.2 g/dL (12.0-16.0); Lymphocytes 4 % (21-51); MDiff Complete? YES; Mean Corpuscular HGB CONC 31.6 g/dL (32.0-36.0); Mean Corpuscular Hemoglobin 27.1 pg (27.0-31.0); Mean Corpuscular Volume 85.8 fL (78.0-98.0); Mean Platelet Volume 9.1 fL (7.4-10.4); Monocytes 2 % (0-10); Neutrophil 74 % (42-75); Platelet Count 191 thou/uL (130-400); RBC Distribution Width 15.7 % (11.5-14.5); Red Blood Cell (RBC) Count 3.76 mill/uL (4.20-5.40); White Blood Cell (WBC) Count 11.3 thou/uL (4.8-10.8)
[2021-01-14 06:59] LABS: Actual Bicarbonate (HCO3a) 15.9 mEq/L (22-28); Base Excess (BEa) -11.7 mEq/L (-2.0 to +3.0); CO2 Tension 42.4 mmHg (35.0-45.0); Calcium, Ionized (arterial) 0.89 mmol/L (1.12-1.30); Carboxyhemoglobin (COHb) 0.3 gm% (0.0-3.0); Hemoglobin (Hb) 12.5 g/dL (12.0-16.0); Potassium - ABG Lab 4.75 mmol/L (3.70-5.30)
[2021-01-14 07:01] LABS: O2 Tension (PaO2), arterial 58.9 mmHg (> 80.0); Puncture Site RRA; pH, Arterial 7.19 (7.35-7.45)
[2021-01-14] MEDS ORDERED: Heparin 5,000 UNITS/ML VIAL SC SCH (09:00)
[2021-01-14] MEDS: Clopidogrel Bisulfate 75 MG TAB PO SCH ×2 (09:00→11:56)
[2021-01-14] MEDS: Sodium Bicarbonate 140 MEQ in Dextrose 5% in Water 1,000 ML IV SCH ×2 (09:28→23:50)
[2021-01-14] MEDS: Ivermectin 3 MG TAB PO SCH (09:29)
[2021-01-14] MEDS: Ascorbic Acid 500 mg Chewable Tablet PO SCH ×2 (09:29→20:01)
[2021-01-14] MEDS: Pantoprazole 40 MG GRANULES PACKET PER TUBE SCH (09:30)
[2021-01-14] MEDS: Metoprolol Tartrate 25 MG TAB PO SCH ×2 (09:30→20:02)
[2021-01-14] MEDS: Cholecalciferol (Vitamin D3) 400 UNITS TAB PO SCH (09:30)
[2021-01-14] MEDS: Zinc Sulfate 220 MG CAP PO SCH (09:30)
[2021-01-14] MEDS ORDERED: Heparin 10,000 UNITS/ 10 ML VIAL ONE (10:19)
[2021-01-14] MEDS: NPH, Human Insulin Isophane 300 UNIT/3 ML VIAL SC SCH ×2 (10:47→20:02)
[2021-01-14] MEDS: METHYLPREDNISOLONE SOD SUCC IVPB SCH (11:56)
[2021-01-14] MEDS: Micafungin 100 MG in Sodium Chloride 0.9% 100 ML IVPB SCH (11:56)
[2021-01-14] MEDS: SODIUM CHLORIDE 0.9% IVPB SCH (11:56)
[2021-01-14] MEDS: Thiamine HCl 200 MG/2 ML VIAL SLOW IVP SCH (12:46)
[2021-01-14 15:20] LABS: Hep B Surf Ag Non-Reactive S/CO (NonReactive)
[2021-01-14 15:28] LABS: HBSAB Concentration Greater than 1000.00 mIU/mL; Hep B Surf AB Reactive (NonReactive)
[2021-01-14] MEDS: Melatonin 3 MG TAB PO SCH (20:00)
[2021-01-14] MEDS: Atorvastatin Calcium 40 MG TAB PO SCH (20:01)
[2021-01-14] MEDS: Cefepime 0.5 GM, Admixture Fee 1 EACH in Sodium Chloride 0.9% 100 ML IVPB SCH (20:52)
[2021-01-15] MEDS: Diltiazem HCl 125 MG, Admixture Fee 1 EACH in Sodium Chloride 0.9% 100 ML IVPB SCH (02:54)
[2021-01-15] MEDS: Propofol 1,000 MG/100 ML VIAL IV PRN ×3 (02:55→14:55)
[2021-01-15] MEDS: Metoclopramide HCl 10 MG/2 ML VIAL IVP SCH ×3 (02:57→19:57)
[2021-01-15] MEDS: HumaLOG 300 UNITS/3 ML VIAL SC PRN ×3 (03:30→22:40)
[2021-01-15 03:44] LABS: #Lymphocytes 0.4 thou/uL (1.20-3.40); #Monocytes 0.5 thou/uL (0.11-0.59); #Neutrophils 7.3 thou/uL (1.40-6.50); %Eosinophils 0.1 % (0.0-10.0); %Lymphocytes 4.3 % (21.0-51.0); %Monocytes 5.9 % (0.0-10.0); %Neutrophils 89.6 % (42.0-75.0); Hemoglobin 9.2 g/dL (12.0-16.0); Mean Corpuscular HGB CONC 34.4 g/dL (32.0-36.0); Mean Corpuscular Hemoglobin 29.3 pg (27.0-31.0); Mean Corpuscular Volume 85.3 fL (78.0-98.0); Mean Platelet Volume 9.7 fL (7.4-10.4); Platelet Count 128 thou/uL (130-400); Red Blood Cell (RBC) Count 3.13 mill/uL (4.20-5.40); White Blood Cell (WBC) Count 8.2 thou/uL (4.8-10.8)
[2021-01-15 04:03] LABS: Anion Gap 22 mmol/L (10-20); BUN (Urea Nitrogen) 108 mg/dL (9.8-20.1); Calc. Creatinine Clearance 27 mL/min (70-130); Calcium 6.3 mg/dL (7.8-10.44); Carbon Dioxide 17 mmol/L (23-31); Chloride 104 mmol/L (98-107); Glucose 262 mg/dL (80-115); Potassium 4.7 mmol/L (3.5-5.1); Sodium 138 mmol/L (136-145)
[2021-01-15] MEDS: Albuterol 200 PUFF (6.7GM INHALER) INH SCH ×6 (04:07→22:00)
[2021-01-15] MEDS: Lorazepam 2 MG/ML VIAL SLOW IVP PRN (06:27)
[2021-01-15] MEDS: Vecuronium 10 MG VIAL IVP PRN ×3 (06:27→14:55)
[2021-01-15 07:02] LABS: Actual Bicarbonate (HCO3a) 18.8 mEq/L (22-28); Base Excess (BEa) -8.4 mEq/L (-2.0 to +3.0); CO2 Tension 46.4 mmHg (35.0-45.0); Calcium, Ionized (arterial) 0.87 mmol/L (1.12-1.30); Carboxyhemoglobin (COHb) 0.1 gm% (0.0-3.0); Potassium - ABG Lab 4.61 mmol/L (3.70-5.30)
[2021-01-15 07:04] LABS: O2 Tension (PaO2), arterial 52.2 mmHg (> 80.0); pH, Arterial 7.23 (7.35-7.45)
[2021-01-15 07:05] LABS: Puncture Site RBA
[2021-01-15] MEDS: Clopidogrel Bisulfate 75 MG TAB PO SCH (08:34)
[2021-01-15] MEDS: Heparin 5,000 UNITS/ML VIAL SC SCH ×2 (08:34→19:57)
[2021-01-15] MEDS: Cholecalciferol (Vitamin D3) 400 UNITS TAB PO SCH (08:34)
[2021-01-15] MEDS: Metoprolol Tartrate 25 MG TAB PO SCH ×2 (08:34→19:58)
[2021-01-15] MEDS: Ascorbic Acid 500 mg Chewable Tablet PO SCH ×2 (08:34→19:57)
[2021-01-15] MEDS: Ivermectin 3 MG TAB PO SCH (08:35)
[2021-01-15] MEDS: Pantoprazole 40 MG GRANULES PACKET PER TUBE SCH (08:35)
[2021-01-15] MEDS: NPH, Human Insulin Isophane 300 UNIT/3 ML VIAL SC SCH ×2 (08:36→22:28)
[2021-01-15] MEDS: Zinc Sulfate 220 MG CAP PO SCH (08:36)
[2021-01-15] MEDS: METHYLPREDNISOLONE SOD SUCC IVPB SCH (10:44)
[2021-01-15] MEDS: SODIUM CHLORIDE 0.9% IVPB SCH (10:44)
[2021-01-15] MEDS: Thiamine HCl 200 MG/2 ML VIAL SLOW IVP SCH (11:42)
[2021-01-15] MEDS: Micafungin 100 MG in Sodium Chloride 0.9% 100 ML IVPB SCH (11:42)
[2021-01-15] MEDS ORDERED: Heparin 10,000 UNITS/ 10 ML VIAL ONE (14:52)
[2021-01-15] MEDS: Sodium Bicarbonate 140 MEQ in Dextrose 5% in Water 1,000 ML IV SCH (14:55)
[2021-01-15] MEDS ORDERED: Fentanyl CADD 100 ML ONE (15:17)
[2021-01-15] MEDS: Atorvastatin Calcium 40 MG TAB PO SCH (19:57)
[2021-01-15] MEDS: Melatonin 3 MG TAB PO SCH (19:58)
[2021-01-15] MEDS: Cefepime 0.5 GM, Admixture Fee 1 EACH in Sodium Chloride 0.9% 100 ML IVPB SCH (22:28)
[2021-01-16] MEDS: Diltiazem HCl 125 MG, Admixture Fee 1 EACH in Sodium Chloride 0.9% 100 ML IVPB SCH ×2 (00:44→14:28)
[2021-01-16] MEDS: Propofol 1,000 MG/100 ML VIAL IV PRN ×3 (00:44→20:17)
[2021-01-16] MEDS: Lorazepam 2 MG/ML VIAL SLOW IVP PRN ×5 (00:46→20:35)
[2021-01-16] MEDS: Vecuronium 10 MG VIAL IVP PRN ×4 (00:46→20:35)
[2021-01-16] MEDS: Albuterol 200 PUFF (6.7GM INHALER) INH SCH ×6 (02:02→21:50)
[2021-01-16] MEDS: Metoclopramide HCl 10 MG/2 ML VIAL IVP SCH ×3 (03:06→20:14)
[2021-01-16 03:11] LABS: Actual Bicarbonate (HCO3a) 22.8 mEq/L (22-28); Base Excess (BEa) -7.9 mEq/L (-2.0 to +3.0); Carboxyhemoglobin (COHb) 0.4 gm% (0.0-3.0); Hemoglobin (Hb) 11.3 g/dL (12.0-16.0); Potassium - ABG Lab 4.81 mmol/L (3.70-5.30)
[2021-01-16 03:16] LABS: O2 Tension (PaO2), arterial 50.5 mmHg (> 80.0); pH, Arterial 7.09 (7.35-7.45)
[2021-01-16 03:17] LABS: Puncture Site RRA
[2021-01-16] MEDS: HumaLOG 300 UNITS/3 ML VIAL SC PRN (04:20)
[2021-01-16] MEDS: Sodium Bicarbonate 140 MEQ in Dextrose 5% in Water 1,000 ML IV SCH ×2 (04:32→22:05)
[2021-01-16 04:44] LABS: Mean Corpuscular HGB CONC 32.4 g/dL (32.0-36.0); Mean Corpuscular Hemoglobin 27.9 pg (27.0-31.0); Mean Corpuscular Volume 86.1 fL (78.0-98.0); Mean Platelet Volume 9.9 fL (7.4-10.4); Platelet Count 146 thou/uL (130-400); RBC Distribution Width 15.5 % (11.5-14.5); Red Blood Cell (RBC) Count 3.58 mill/uL (4.20-5.40); White Blood Cell (WBC) Count 13.7 thou/uL (4.8-10.8)
[2021-01-16 05:02] LABS: Anion Gap 22 mmol/L (10-20); BUN (Urea Nitrogen) 96 mg/dL (9.8-20.1); Calc. Creatinine Clearance 28 mL/min (70-130); Calcium 6.7 mg/dL (7.8-10.44); Carbon Dioxide 23 mmol/L (23-31); Chloride 96 mmol/L (98-107); Glucose 250 mg/dL (80-115); Potassium 4.7 mmol/L (3.5-5.1); Sodium 136 mmol/L (136-145)
[2021-01-16 05:20] LABS: Band 1 % (5-11); Lymphocytes 3 % (21-51); MDiff Complete? YES; Monocytes 2 % (0-10); Neutrophil 94 % (42-75); Nucleated RBC 1 % (0); Platelet Morphology Comment Appears Adequate
[2021-01-16] MEDS: Metoprolol Tartrate 25 MG TAB PO SCH ×2 (07:48→20:14)
[2021-01-16] MEDS: Cholecalciferol (Vitamin D3) 400 UNITS TAB PO SCH (07:48)
[2021-01-16] MEDS: Zinc Sulfate 220 MG CAP PO SCH (07:49)
[2021-01-16] MEDS: Clopidogrel Bisulfate 75 MG TAB PO SCH (07:49)
[2021-01-16] MEDS: Ivermectin 3 MG TAB PO SCH (07:49)
[2021-01-16] MEDS: Heparin 5,000 UNITS/ML VIAL SC SCH ×2 (07:49→20:14)
[2021-01-16] MEDS: Ascorbic Acid 500 mg Chewable Tablet PO SCH ×2 (07:49→20:14)
[2021-01-16] MEDS: Pantoprazole 40 MG GRANULES PACKET PER TUBE SCH (07:49)
[2021-01-16] MEDS: NPH, Human Insulin Isophane 300 UNIT/3 ML VIAL SC SCH ×2 (07:50→22:04)
[2021-01-16] MEDS ORDERED: Albumin 25% 25 GM/100 ML BOT IVPB SCH (08:45)
[2021-01-16] MEDS: Norepinephrine 8 MG/0.9% NS 250 ML IVPB SCH (10:08)
[2021-01-16] MEDS ORDERED: Fentanyl CADD 100 ML ONE (12:10)
[2021-01-16] MEDS: Micafungin 100 MG in Sodium Chloride 0.9% 100 ML IVPB SCH (12:14)
[2021-01-16] MEDS: METHYLPREDNISOLONE SOD SUCC IVPB SCH (12:16)
[2021-01-16] MEDS: SODIUM CHLORIDE 0.9% IVPB SCH (12:16)
[2021-01-16 12:31] VITALS: BMI 57.4
[2021-01-16] MEDS: Thiamine HCl 200 MG/2 ML VIAL SLOW IVP SCH (14:28)
[2021-01-16] MEDS ORDERED: Heparin 10,000 UNITS/ 10 ML VIAL ONE (14:48)
[2021-01-16] MEDS: Melatonin 3 MG TAB PO SCH (20:14)
[2021-01-16] MEDS: Atorvastatin Calcium 40 MG TAB PO SCH (20:14)
[2021-01-16 21:51] VITALS: BP 116/65
[2021-01-16] MEDS: Cefepime 0.5 GM, Admixture Fee 1 EACH in Sodium Chloride 0.9% 100 ML IVPB SCH (22:05)
[2021-01-17] MEDS: Diltiazem HCl 125 MG, Admixture Fee 1 EACH in Sodium Chloride 0.9% 100 ML IVPB SCH ×2 (00:32→19:47)
[2021-01-17] MEDS: Propofol 1,000 MG/100 ML VIAL IV PRN ×4 (00:32→19:46)
[2021-01-17] MEDS: Albuterol 200 PUFF (6.7GM INHALER) INH SCH ×6 (02:04→21:57)
[2021-01-17] MEDS: Vecuronium 10 MG VIAL IVP PRN (03:35)
[2021-01-17] MEDS: Metoclopramide HCl 10 MG/2 ML VIAL IVP SCH ×3 (03:35→19:44)
[2021-01-17 04:56] LABS: Anion Gap 23 mmol/L (10-20); BUN (Urea Nitrogen) 88 mg/dL (9.8-20.1); Calc. Creatinine Clearance 30 mL/min (70-130); Calcium 6.8 mg/dL (7.8-10.44); Carbon Dioxide 24 mmol/L (23-31); Chloride 94 mmol/L (98-107); Glucose 223 mg/dL (80-115); Potassium 4.7 mmol/L (3.5-5.1); Sodium 136 mmol/L (136-145)
[2021-01-17 04:58] LABS: Band 25 % (5-11); Hemoglobin 9.4 g/dL (12.0-16.0); Lymphocytes 1 % (21-51); MDiff Complete? YES; Mean Corpuscular HGB CONC 32.3 g/dL (32.0-36.0); Mean Corpuscular Hemoglobin 27.4 pg (27.0-31.0); Mean Corpuscular Volume 84.9 fL (78.0-98.0); Metamyelocyte 1 % (0-0); Monocytes 4 % (0-10); Neutrophil 69 % (42-75); Platelet Count 129 thou/uL (130-400); Platelet Morphology Comment Appears Adequate; RBC Distribution Width 15.9 % (11.5-14.5); Red Blood Cell (RBC) Count 3.43 mill/uL (4.20-5.40); White Blood Cell (WBC) Count 13.2 thou/uL (4.8-10.8)
[2021-01-17] MEDS: HumaLOG 300 UNITS/3 ML VIAL SC PRN ×3 (05:27→22:08)
[2021-01-17] MEDS ORDERED: Fentanyl CADD 100 ML ONE (07:50)
[2021-01-17] MEDS: Cholecalciferol (Vitamin D3) 400 UNITS TAB PO SCH (07:54)
[2021-01-17] MEDS: Clopidogrel Bisulfate 75 MG TAB PO SCH (07:54)
[2021-01-17] MEDS: Pantoprazole 40 MG GRANULES PACKET PER TUBE SCH (07:54)
[2021-01-17] MEDS: Zinc Sulfate 220 MG CAP PO SCH (07:55)
[2021-01-17] MEDS: Ivermectin 3 MG TAB PO SCH (07:55)
[2021-01-17] MEDS: Metoprolol Tartrate 25 MG TAB PO SCH ×2 (07:55→19:45)
[2021-01-17] MEDS: Lorazepam 2 MG/ML VIAL SLOW IVP PRN (07:55)
[2021-01-17] MEDS: Heparin 5,000 UNITS/ML VIAL SC SCH ×2 (07:55→19:45)
[2021-01-17] MEDS: Ascorbic Acid 500 mg Chewable Tablet PO SCH ×2 (07:55→19:44)
[2021-01-17] MEDS: NPH, Human Insulin Isophane 300 UNIT/3 ML VIAL SC SCH ×2 (07:56→21:56)
[2021-01-17] MEDS: Micafungin 100 MG in Sodium Chloride 0.9% 100 ML IVPB SCH (10:05)
[2021-01-17] MEDS: SODIUM CHLORIDE 0.9% IVPB SCH (10:07)
[2021-01-17] MEDS: METHYLPREDNISOLONE SOD SUCC IVPB SCH (10:07)
[2021-01-17] MEDS: Sodium Bicarbonate 140 MEQ in Dextrose 5% in Water 1,000 ML IV SCH (13:26)
[2021-01-17] MEDS: Thiamine HCl 200 MG/2 ML VIAL SLOW IVP SCH (13:26)
[2021-01-17] MEDS: Atorvastatin Calcium 40 MG TAB PO SCH (19:44)
[2021-01-17] MEDS: Melatonin 3 MG TAB PO SCH (19:45)
[2021-01-17] MEDS: Cefepime 0.5 GM, Admixture Fee 1 EACH in Sodium Chloride 0.9% 100 ML IVPB SCH (19:45)
[2021-01-17 20:37] VITALS: TEMP 97.4
[2021-01-18] MEDS: Albuterol 200 PUFF (6.7GM INHALER) INH SCH ×3 (02:18→11:05)
[2021-01-18] MEDS: Sodium Bicarbonate 140 MEQ in Dextrose 5% in Water 1,000 ML IV SCH (02:32)
[2021-01-18] MEDS ORDERED: Fentanyl CADD 100 ML ONE (02:45)
[2021-01-18] MEDS: Metoclopramide HCl 10 MG/2 ML VIAL IVP SCH (04:16)
[2021-01-18] MEDS: Propofol 1,000 MG/100 ML VIAL IV PRN (04:17)
[2021-01-18] MEDS: Vecuronium 10 MG VIAL IVP PRN ×2 (04:17→06:19)
[2021-01-18] MEDS: Fentanyl CADD 100 ML IV SCH (04:17)
[2021-01-18] MEDS: HumaLOG 300 UNITS/3 ML VIAL SC PRN (05:15)
[2021-01-18 05:21] LABS: Hemoglobin 9.3 g/dL (12.0-16.0); Mean Corpuscular HGB CONC 32.8 g/dL (32.0-36.0); Mean Corpuscular Hemoglobin 28.2 pg (27.0-31.0); Mean Corpuscular Volume 86.1 fL (78.0-98.0); Mean Platelet Volume 10.4 fL (7.4-10.4); Platelet Count 148 thou/uL (130-400); RBC Distribution Width 15.8 % (11.5-14.5); White Blood Cell (WBC) Count 20.1 thou/uL (4.8-10.8)
[2021-01-18 05:37] LABS: Band 39 % (5-11); Lymphocytes 1 % (21-51); MDiff Complete? YES; Monocytes 3 % (0-10); Neutrophil 57 % (42-75); Platelet Morphology Comment Appears Adequate
[2021-01-18 05:38] LABS: Anion Gap 22 mmol/L (10-20); BUN (Urea Nitrogen) 104 mg/dL (9.8-20.1); Calc. Creatinine Clearance 27 mL/min (70-130); Calcium 6.7 mg/dL (7.8-10.44); Carbon Dioxide 26 mmol/L (23-31); Chloride 89 mmol/L (98-107); Glucose 235 mg/dL (80-115); Potassium 5.3 mmol/L (3.5-5.1); Sodium 132 mmol/L (136-145)
[2021-01-18] MEDS: Lorazepam 2 MG/ML VIAL SLOW IVP PRN (06:19)
[2021-01-18] MEDS: Metoprolol Tartrate 25 MG TAB PO SCH (08:10)
[2021-01-18] MEDS: Ascorbic Acid 500 mg Chewable Tablet PO SCH (08:10)
[2021-01-18] MEDS: Ivermectin 3 MG TAB PO SCH (08:10)
[2021-01-18] MEDS: Zinc Sulfate 220 MG CAP PO SCH (08:10)
[2021-01-18] MEDS: Pantoprazole 40 MG GRANULES PACKET PER TUBE SCH (08:10)
[2021-01-18] MEDS: NPH, Human Insulin Isophane 300 UNIT/3 ML VIAL SC SCH (08:11)
[2021-01-18] MEDS: Heparin 5,000 UNITS/ML VIAL SC SCH (08:11)
[2021-01-18] MEDS: Clopidogrel Bisulfate 75 MG TAB PO SCH (08:11)
[2021-01-18] MEDS: Cholecalciferol (Vitamin D3) 400 UNITS TAB PO SCH (08:11)
[2021-01-18] MEDS ORDERED: Lorazepam 2 MG/ML VIAL SLOW IVP PRN (10:15)
[2021-01-18] MEDS ORDERED: Fentanyl CADD 100 ML IV SCH (10:15)
[2021-01-18] MEDS ORDERED: Fentanyl BOLUS 250 ML IVPB PRN (10:15)
[2021-01-19 10:48] LABS: Puncture Site RRA
== END 2021-01-18 14:45 | disposition expired | DRG 870 ==
LOC: T4-B 15:55 → CCU 01-06 05:47 → IMCU/EMU 01-06 09:57 → CCU 01-08 08:17
PROVIDERS: ADMIT Internal Medicine; ATTEND Family Medicine
PROC: 8E0ZXY6 Isolation (ICD-10-PCS; 2021-01-04)
PROC: XW033E5 Introduction of Remdesivir Anti-infective into Peripheral Vein, Percutaneous Approach, New Technology Group 5 (ICD-10-PCS; 2021-01-04)
PROC: 5A09457 Assistance with Respiratory Ventilation, 24-96 Consecutive Hours, Continuous Positive Airway Pressure (ICD-10-PCS; principal; 2021-01-06)
PROC: 06HY33Z Insertion of Infusion Device into Lower Vein, Percutaneous Approach (ICD-10-PCS; 2021-01-06)
PROC: 5A1955Z Respiratory Ventilation, Greater than 96 Consecutive Hours (ICD-10-PCS; 2021-01-08)
PROC: 0BH17EZ Insertion of Endotracheal Airway into Trachea, Via Natural or Artificial Opening (ICD-10-PCS; 2021-01-08)
PROC: 3E033XZ Introduction of Vasopressor into Peripheral Vein, Percutaneous Approach (ICD-10-PCS; 2021-01-08)
PROC: 5A12012 Performance of Cardiac Output, Single, Manual (ICD-10-PCS; 2021-01-08)
PROC: 0BJ08ZZ Inspection of Tracheobronchial Tree, Via Natural or Artificial Opening Endoscopic (ICD-10-PCS; 2021-01-12)
PROC: 06HY33Z Insertion of Infusion Device into Lower Vein, Percutaneous Approach (ICD-10-PCS; 2021-01-14)
PROC: 5A1D70Z Performance of Urinary Filtration, Intermittent, Less than 6 Hours Per Day (ICD-10-PCS; 2021-01-15)
DX: A41.89 Other specified sepsis (principal); U07.1 COVID-19; J96.01 Acute respiratory failure with hypoxia; J12.82 Pneumonia due to coronavirus disease 2019; R65.21 Severe sepsis with septic shock; N17.0 Acute kidney failure with tubular necrosis; Z68.44 Body mass index [BMI] 60.0-69.9, adult; E87.2 Acidosis; T85.698A Other mechanical complication of other specified internal prosthetic devices, implants and grafts, initial encounter; Z51.5 Encounter for palliative care; Z66 Do not resuscitate; E66.01 Morbid (severe) obesity due to excess calories; I10 Essential (primary) hypertension; K21.9 Gastro-esophageal reflux disease without esophagitis; I25.10 Atherosclerotic heart disease of native coronary artery without angina pectoris; I48.0 Paroxysmal atrial fibrillation; E78.5 Hyperlipidemia, unspecified; E11.51 Type 2 diabetes mellitus with diabetic peripheral angiopathy without gangrene; I46.9 Cardiac arrest, cause unspecified; Z78.1 Physical restraint status; Z88.0 Allergy status to penicillin; Z88.5 Allergy status to narcotic agent; Z88.8 Allergy status to other drugs, medicaments and biological substances; Z93.3 Colostomy status; I25.2 Old myocardial infarction; Z79.899 Other long term (current) drug therapy; Z79.84 Long term (current) use of oral hypoglycemic drugs; Z90.710 Acquired absence of both cervix and uterus; Z95.5 Presence of coronary angioplasty implant and graft; Z98.890 Other specified postprocedural states; Z87.891 Personal history of nicotine dependence; Z98.51 Tubal ligation status; R00.1 Bradycardia, unspecified; Y83.8 Other surgical procedures as the cause of abnormal reaction of the patient, or of later complication, without mention of misadventure at the time of the procedure
CPT/HCPCS: 36415; 36416; 36600; 51701; 71045; 80048; 81001; 82570; 82728; 82805; 83605; 83735; 84300; 84450; 84460; 84484; 85007; 85025; 85027; 85060; 85379; 86140; 86706; 87040; 87149; 87340; 90935; 93005; 93010; 94002; 94003; 94660; 99285; C9113; G0257; G0378; J0171; J0282; J0360; J0692; J1100; J1642; J1644; J1650; J1815; J1885; J2060; J2248; J2704; J2765; J2930; J3010; J3370; J3411; J3475; J3480; J3490; J7050; J7070; P9047